=== PATIENT | male | born 1955 | race Caucasian/White ===

== ENCOUNTER → 2021-02-26 | Outpatient (CLI) | payer BC, OTHER ==
[~2021-02-26] MED LIST: ASCO500C6 PO; ATOR40TA69 PO; ESOM20CA31 PO; MULT-1192 PO; VITA1CAP PO
== END | disposition home or self-care (01) ==
LOC: CANSCHCLI → SHCH 12:10
PROVIDERS: ATTEND Internal Medicine Cardiovascular Disease
DX: I35.0 Nonrheumatic aortic (valve) stenosis (principal); R01.1 Cardiac murmur, unspecified; E78.5 Hyperlipidemia, unspecified; I51.7 Cardiomegaly
CPT/HCPCS: 93306; 93356